=== PATIENT | female | born 1930 | race Caucasian/White ===

== ENCOUNTER → 2017-07-01 | Outpatient (CLI) | payer MEDICARE, OTHER ==
[~2017-07-01] MED LIST: ANASPAZ0.125 MG SUBLING; ASPIRIN81 M2 PO; CARVEDILOL12.5 MG PO; CATAPRES0.2 MG PO; COLESTID1 GM PO; CYMBALTA60 MG PO; DEXILANT60 MG PO; ENTOCORT EC 3 MG3 MG PO; HYDROCODON-ACE1 EAC5 PO; LIDOCAINE TRANSDERM; LOPERAMIDE 2 MG2 M1 PO; NITROGLYCERIN0.4 MG SUBLING; NORCO 10-325 T1 EACH PO; PLAVIX 75 MG TA75 M1 PO; SYNTHROID137 MC1 PO; SYNTHROID150 MCG PO; WELLBUTRIN 75 M75 M1 PO; XIFAXAN550 M1 PO; ZANAFLEX6 MG PO; ZETIA10 MG PO; ZOFRAN ODT4 MG DISSOLVE
--- NOTE | 2017-07-09 08:48 | PAINCON ---
[address] [address] PAIN MANAGEMENT CONSULTATION Name: RED HASSAN Room: [facility] Ray#: [id number] Admission: 07/01/17 Attend Phys: Yanna Rebolledo MD Discharge: Date of : 32 Report #: [id number] THIS REPORT FOR: //name// CC: Katerin Rebolledo DATE OF SERVICE: 07/01/2017 FOLLOWUP COMPLAINT: "I would like to have my pain controlled from a Pain Clinic closer to home." FOLLOWUP HISTORY: The patient is an 86-year-old female who has been followed for a number of years because of chronic pain. It has been greater than 10 years. She has been followed by the [facility]. She finds that this is somewhat problematic in going that great distance. She lives close to [facility] and would like to have her treatment transferred to our facility. She has chronic low back pain, treated for fibromyalgia and has undergone a number of procedures in the Pain Clinic in the past. She has had some problems with her neck and undergone radiofrequency lesioning. She does have right trochanteric bursitis and has undergone injections in this area. She has also undergone lumbar radicular treatment. She has had dystonia. She has had problems with myofascial pain syndrome. She has undergone a trial with a nerve/dorsal column stimulator. She did not find that this was significantly helpful. She did have some concerns and that a friend of hers had a similar procedure and developed paralysis. The patient never regained use of her lower extremity prior to her . The patient has had medial branch blocks of the lumbar area. She had cervical medial branch block in 2006. PAST MEDICAL HISTORY: 1. Lymphocytic colitis in 03/22/2016. 2. History of Clostridium difficile diarrhea in 2010. 3. Rapid gastric emptying in 03/20/2016. 4. Hypertension. 5. History of TIA. 6. Hypothyroidism. 7. Hyperlipidemia. 8. Low back pain. 9. Fibromyalgia. 10. Osteopenia. 11. History of Darline esophagitis. 12. Coronary artery disease status post stent placement in 2016. CURRENT MEDICATION REGIMEN: Aspirin 81 mg tablet, Entocort EC 3 mg capsule, Wellbutrin 75 mg, Coreg 12.5 mg, Plavix 75 mg t.i.d., Colestid 1 g, Dexilant 60 mg, Cymbalta 60 mg, Zetia 10 mg, Placida 10/325, Hyoscyamine 0.125 mg, [place] [address] PAIN MANAGEMENT CONSULTATION Name: RED HASSAN Room: [facility].#: [id number] Admission: 07/01/17 Attend Phys: Yanna Rebolledo MD Discharge: Date of : 32 Report #: [id number] 150 mcg, Lidoderm patch 5% topical, Imodium 2 g, nitroglycerin 0.4 mg tablets p.r.n., Zofran 4 mg rapid dissolving tablet, and Zanaflex 8 mg. SOCIAL HISTORY: She is retired. Denies use of tobacco, denies use of alcoholic beverages. Denies use of drugs. PAST SURGICAL HISTORY: 1. She has had lesioning of the medial branch blocks in the neck as well as in the lumbar area. 2. She has had trial of a nerve/dorsal column stimulator, did not find that effective. 3. Left mastectomy. 4. Cholecystectomy. REVIEW OF SYSTEMS: Questionnaire in the chart 14 point, weight change, fatigue, weakness, eye disease, has some macular degenerative problems and still sees reasonably well per her report, heart trouble, chest pain, and has had stent placement. GASTROINTESTINAL: Note some bowel changes, frequent diarrhea, and abdominal pain. MUSCULOSKELETAL: Joint pain, joint stiffness, muscle weakness, cramping, back pain, and difficulty walking. NEUROLOGIC: Transient ischemic attack with no apparent neurological deficits. PHYSICAL EXAMINATION: VITAL SIGNS: Blood pressure 175/84, pulse 81, second blood pressure 160/82, respiratory rate 16, room air saturation 98%, temperature 98.8, height 5 feet 0 inches, weight 106 pounds, BMI is 21. HEENT: Generally unremarkable. The patient states that her vision is reasonably good despite the onset of macular degeneration. CHEST: Clear to auscultation. There are no bruits or masses. HEART: Regular rate. LUNGS: Clear. ABDOMEN: Nontender. EXTREMITIES: Deep tendon reflexes are trace in the upper extremities. The patient states that sensation to light touch and cold are within normal limits. Does have some evidence of bruising in her forearm and her hand. The patient states that she bruises easily. Muscle strength is judged to be 4/5 in the upper extremities. Patella was +1 and Achilles +1. The patient has tenderness with palpation along the left greater trochanteric area. Describes pain that radiates down the lateral portion of her right leg. The patient denies any clubbing or swelling or history of congestive heart failure. IMPRESSION: 1. Chronic pain greater than 10 years with pain in the right hip with trochanteric bursitis. [facility] [address] [place] [address] PAIN MANAGEMENT CONSULTATION Name: RED HASSAN Room: [facility]#: [id number] Admission: 07/01/17 Attend Phys: Yanna Rebolledo MD Discharge: Date of : 32 Report #: [id number] 2. History of lumbar radicular pain. The patient is now on Plavix, which makes it more difficult to perform an injection. 3. Lymphocytic colitis. 4. History of Clostridium difficile associated diarrhea. 5. Rapid gastric emptying. 6. Hypertension. 7. History of transient ischemic attack. 8. History of myocardial infarction STEMI with stent placement approximately 03/2017. 9. Hypothyroidism. 10. Hyperlipidemia. 11. Status post left mastectomy. 12. Chronic low back pain. 13. Fibromyalgia. 14. Osteopenia. 15. Status post cholecystectomy in 2011. 16. History of Darline esophagitis. RECOMMENDATIONS: We discussed treatment options with the patient. At this juncture, she would like to have her medications dispensed from a facility closer to home. She finds it difficult to get to the [facility]. We have explained the policies here at our pain clinic. We would be willing to provide the patient with her medications, given that she complies with the requirements. A script for hydrocodone 10/325 one p.o. every day, total of 90 pills was dispensed. The patient will call us if she has any problems with her medications. We would like to thank you for letting us participate in her care. We hope she continues to improve. A total of 40 minutes were spent with the patient discussing her situation and treatment options in that regard. <ELECTRONICALLY SIGNED> By: Yanna Rebolledo MD 07/09/17 [id number]. Marcial Rebolledo MD /ARTURO
== END ==
LOC: M.PC 00:01
DX: M54.16 Radiculopathy, lumbar region (principal); G89.29 Other chronic pain; I10 Essential (primary) hypertension; E03.9 Hypothyroidism, unspecified; E78.5 Hyperlipidemia, unspecified; I25.10 Atherosclerotic heart disease of native coronary artery without angina pectoris; K31.84 Gastroparesis; I25.2 Old myocardial infarction; M79.7 Fibromyalgia; M85.88 Other specified disorders of bone density and structure, other site; B37.81 Candidal esophagitis; Z95.5 Presence of coronary angioplasty implant and graft; Z86.73 Personal history of transient ischemic attack (TIA), and cerebral infarction without residual deficits; Z98.890 Other specified postprocedural states; Z90.49 Acquired absence of other specified parts of digestive tract; Z90.12 Acquired absence of left breast and nipple; Z86.19 Personal history of other infectious and parasitic diseases

== ENCOUNTER → 2018-08-12 | Outpatient (CLI) | payer MEDICARE, OTHER | LOC: M.WC 09:18 | DX: S81.801A Unspecified open wound, right lower leg, initial encounter (principal); S81.832A Puncture wound without foreign body, left lower leg, initial encounter; E03.9 Hypothyroidism, unspecified; E78.5 Hyperlipidemia, unspecified; I10 Essential (primary) hypertension; I25.10 Atherosclerotic heart disease of native coronary artery without angina pectoris; M85.88 Other specified disorders of bone density and structure, other site; Z86.73 Personal history of transient ischemic attack (TIA), and cerebral infarction without residual deficits; Z79.82 Long term (current) use of aspirin; W22.8XXA Striking against or struck by other objects, initial encounter; Y93.89 Activity, other specified; Y92.89 Other specified places as the place of occurrence of the external cause; Y99.8 Other external cause status ==

== ENCOUNTER → 2018-08-26 | Outpatient (CLI) | payer MEDICARE, OTHER | LOC: M.WC 08-19 04:55 | DX: S81.801D Unspecified open wound, right lower leg, subsequent encounter (principal); S81.832D Puncture wound without foreign body, left lower leg, subsequent encounter; E03.9 Hypothyroidism, unspecified; E78.5 Hyperlipidemia, unspecified; I10 Essential (primary) hypertension; I25.10 Atherosclerotic heart disease of native coronary artery without angina pectoris; M85.88 Other specified disorders of bone density and structure, other site; Z86.73 Personal history of transient ischemic attack (TIA), and cerebral infarction without residual deficits; Z95.5 Presence of coronary angioplasty implant and graft; W22.8XXD Striking against or struck by other objects, subsequent encounter ==

== ENCOUNTER → 2018-09-02 | Outpatient (CLI) | payer MEDICARE, OTHER | LOC: M.WC 04:38 | DX: S81.801D Unspecified open wound, right lower leg, subsequent encounter (principal); S81.831D Puncture wound without foreign body, right lower leg, subsequent encounter; E03.9 Hypothyroidism, unspecified; E78.5 Hyperlipidemia, unspecified; I10 Essential (primary) hypertension; I25.10 Atherosclerotic heart disease of native coronary artery without angina pectoris; M85.88 Other specified disorders of bone density and structure, other site; Z86.73 Personal history of transient ischemic attack (TIA), and cerebral infarction without residual deficits; Z95.5 Presence of coronary angioplasty implant and graft; W22.8XXD Striking against or struck by other objects, subsequent encounter ==

== ENCOUNTER → 2018-09-09 | Outpatient (CLI) | payer MEDICARE, OTHER | LOC: M.WC 05:29 | DX: S81.801D Unspecified open wound, right lower leg, subsequent encounter (principal); E03.9 Hypothyroidism, unspecified; E78.5 Hyperlipidemia, unspecified; I10 Essential (primary) hypertension; I25.10 Atherosclerotic heart disease of native coronary artery without angina pectoris; M85.88 Other specified disorders of bone density and structure, other site; Z86.73 Personal history of transient ischemic attack (TIA), and cerebral infarction without residual deficits; Z95.5 Presence of coronary angioplasty implant and graft; W22.8XXD Striking against or struck by other objects, subsequent encounter ==